=== PATIENT | female | born 1975 | race Asian ===

== ENCOUNTER 2017-01-20 15:05 | Emergency (ER) | payer SELFPAY ==
[~2017-01-20] VITALS: Ht 162.6 cm; Wt 62.3 kg
[2017-01-20 15:12] VITALS: TEMP 98.6
[2017-01-20 15:49] LABS: BASO % 0.2 % (0.0-2.0); EOS # 0.1 (0.0-0.7); GRAN # 9.1 (1.4-6.5); GRAN % 78.5 % (42.2-75.2); LYMPH # 1.8 (1.2-3.4); LYMPH % 15.5 % (20.0-51.0); MEAN CELL VOLUME 94 fl (80.0-100.0); MEAN CORPUSCULAR HEMOGLOBIN 32 pg (27.0-31.0); MEAN CORPUSCULAR HGB CONC 34 g/dl (33.0-37.0); MEAN PLATELET VOLUME 9.6 fl (7.4-10.4); MONO # 0.5 (0.1-0.6); MONO % 4.5 % (1.7-9.3); PLATELET COUNT 195 K/mm3 (130-400); RED BLOOD COUNT 3.81 M/mm3 (4.10-5.30); REDCELL DISTRIBUTION WIDTH-CV 12.7 % (11.5-14.5); WHITE BLOOD COUNT 11.6 K/mm3 (4.8-10.8)
[2017-01-20 15:51] LABS: HEMATOCRIT 35.8 % (37.0-47.0)
[2017-01-20 17:05] LABS: ADJUSTED CALCIUM 9.4 mg/dL (8.4-10.2); ALBUMIN 3.5 gm/dL (3.5-5.0); BILIRUBIN,TOTAL 0.3 mg/dL (0.0-1.0); CREATININE, serum 0.63 mg/dL (0.52-1.25); POTASSIUM 4.2 mmol/L (3.4-5.0); TOTAL PROTEIN 6.5 gm/dL (6.4-8.2)
[2017-01-20 17:24] VITALS: BP 96/66; PULSE 83
[2017-01-20 17:39] VITALS: BP 104/66; PULSE 83; TEMP 98.2
== END 2017-01-20 17:26 | disposition home or self-care (01) ==
LOC: COL.ER 15:05
PROVIDERS: Emergency Medicine
DX: O42.912 Preterm premature rupture of membranes, unspecified as to length of time between rupture and onset of labor, second trimester (principal); O9A.212 Injury, poisoning and certain other consequences of external causes complicating pregnancy, second trimester; S39.92XA Unspecified injury of lower back, initial encounter; O09.522 Supervision of elderly multigravida, second trimester; Z3A.22 22 weeks gestation of pregnancy; W01.10XA Fall on same level from slipping, tripping and stumbling with subsequent striking against unspecified object, initial encounter; Y93.51 Activity, roller skating (inline) and skateboarding; Y92.331 Roller skating rink as the place of occurrence of the external cause
CPT/HCPCS: J7030

== ENCOUNTER 2017-01-20 17:25 | Outpatient (CLI) | payer SELFPAY ==
[~2017-01-20] VITALS: Ht 162.6 cm; Wt 62.3 kg
[2017-01-20 18:00] VITALS: BP 109/64; PULSE 86
[2017-01-20 18:14] VITALS: BP 109/64; PULSE 86; TEMP 98.2
[2017-01-20 18:30] VITALS: BP 92/62; PULSE 85
[2017-01-20 19:40] VITALS: BP 105/56; PULSE 85
== END 2017-01-20 19:50 | disposition home or self-care (01) ==
LOC: LDRO 17:25
DX: O71.89 Other specified obstetric trauma (principal); Z3A.22 22 weeks gestation of pregnancy

== ENCOUNTER → 2020-11-13 | Outpatient (REF) ==
[~2020-11-13] MED LIST: IBU600 MG PO; PERCOCET 325 MG1 TA2 PO
== END ==
LOC: COL.LAB 10:03
DX: Z20.822 Contact with and (suspected) exposure to COVID-19 (principal)

== ENCOUNTER 2021-07-22 09:59 | Emergency (ER) | payer BC ==
[~2021-07-22] VITALS: Ht 162.6 cm; Wt 78.6 kg
[2021-07-22 10:05] VITALS: TEMP 97.5
[2021-07-22 10:43] LABS: BASO % 0.4 % (0.0-2.0); EOS # 0.1 K/mm3 (0.0-0.7); EOS % 1.6 % (0.0-4.0); GRAN # 2.6 K/mm3 (1.4-6.5); GRAN % 52.2 % (42.2-75.2); HEMATOCRIT 41.5 % (37.0-47.0); LYMPH % 39.9 % (20.0-51.0); MEAN CELL VOLUME 90 fl (80.0-100.0); MEAN CORPUSCULAR HEMOGLOBIN 30 pg (27-31); MEAN CORPUSCULAR HGB CONC 34 g/dl (33.0-37.0); MEAN PLATELET VOLUME 9.4 fl (7.4-10.4); MONO # 0.3 K/mm3 (0.1-0.6); MONO % 5.7 % (1.7-9.3); PLATELET COUNT 244 K/mm3 (130-400); RED BLOOD COUNT 4.63 M/mm3 (4.10-5.30); REDCELL DISTRIBUTION WIDTH-CV 11.7 % (11.5-14.5)
[2021-07-22 10:54] LABS: ALBUMIN 4.3 gm/dL (3.5-5.0); BILIRUBIN,TOTAL 0.5 mg/dL (0.2-1.2); CALCIUM 8.9 mg/dL (8.4-10.2); CREATININE, serum 0.69 mg/dL (0.57-1.11); POTASSIUM 3.8 mmol/L (3.5-4.5); TOTAL PROTEIN 7.6 gm/dL (6.2-8.1)
[2021-07-22 11:58] LABS: COLLECTION METHOD CLEAN CATCH
[2021-07-22 12:04] LABS: PH 6 (5-8); SQUAMOUS EPITHELIAL 0-2 /hpf (0-10); URINE APPEARANCE Clear (CLEAR/HAZY); URINE BACTERIA None Seen /hpf (NONE SEEN); URINE BILIRUBIN Negative (NEGATIVE); URINE BLOOD 1+ (NEGATIVE); URINE COLOR Colorless (YELLOW); URINE GLUCOSE Negative (NEGATIVE); URINE KETONE Negative (NEGATIVE); URINE LEUKOCYTE ESTERASE Negative (NEGATIVE); URINE NITRATE Negative (NEGATIVE); URINE PROTEIN(semi-quant) Negative (NEGATIVE); URINE RBC None Seen /hpf (0-2); URINE UROBILINOGEN Negative (NEGATIVE)
[2021-07-22] MEDS ORDERED: ZOFRAN ODT4 MG PO (13:38)
[2021-07-22] MEDS ORDERED: NORCO 325 MG-51 TAB PO (13:38)
[2021-07-22 13:47] VITALS: BP 108/68; PULSE 61
== END 2021-07-22 13:49 | disposition home or self-care (01) ==
LOC: COL.ER 09:59
PROVIDERS: Personal Emergency Response Attendant
DX: R10.31 Right lower quadrant pain (principal); R11.0 Nausea
CPT/HCPCS: J2270; J2405; J7030